=== PATIENT | female | born 1995 | race Asian ===

== ENCOUNTER 2024-02-07 11:08 | Inpatient (IN) | payer OTHER ==
[2024-02-07] VITALS (30 sets, daily range): BP systolic 101–176; BP diastolic 50–128; PULSE 91–156; RESP 13–34; TEMP 99.4–101.3
[~2024-02-07] VITALS: Ht 157.5 cm; Wt 59.0 kg
[2024-02-07] MEDS ORDERED: CEFEPIME 2GM IN DEXT 5% 100ML IV ONE (12:00)
[2024-02-07] MEDS: SODIUM CHLORIDE 0.9% 1,000 ML IV ONE ×2 (12:05→13:49)
[2024-02-07 12:06] LABS: HEMATOCRIT. 30.6 % (36.0-48.0); HEMOGLOBIN. 10.1 g/dL (12.0-16.0); MEAN CORPUSCULAR HEMOGLOBIN 28.3 pg (28.0-32.0); MEAN CORPUSCULAR VOLUME 85.7 fL (81.0-99.0); MEAN PLATELET VOLUME 7.5 fl (7.4-10.4); PLATELET 409 x1000/uL (130-400); RED BLOOD CELL COUNT 3.57 mill/uL (4.2-5.4); RED CELL DISTRIBUTION WIDTH 19.9 % (11.6-14.6); WHITE BLOOD COUNT 10.2 x1000/uL (4.5-11.0)
[2024-02-07 12:10] LABS: DIFFERENTIAL COMMENT 1
[2024-02-07 12:26] LABS: ALANINE AMINOTRANSFERASE 67 IU/L (10-49); ALBUMIN 3.8 g/dL (3.2-4.8); ASPARTATE AMINOTRANSFERASE 38 IU/L (<34); BILIRUBIN TOTAL 0.3 mg/dL (0.1-1.0); CHLORIDE 120 mEq/L (98-107); CREATINE KINASE 159 IU/L (34-145); CREATININE 1.9 mg/dL (0.6-1.0); GLUCOSE 99 mg/dL (70-105); PROTEIN TOTAL 7.7 g/dL (6.0-8.3); SODIUM 137 mEq/L (136-145); UREA NITROGEN BLOOD 44 mg/dL (9-23)
[2024-02-07] MEDS: CEFEPIME 2GM/100ML 100 ML IV NR (12:27)
[2024-02-07 12:33] LABS: POTASSIUM 7.2 mEq/L (3.5-5.1)
[2024-02-07 12:34] LABS: CARBON DIOXIDE < 10 mEq/L (21-32); TROPONIN I HIGH SENSITIVITY 119 ng/L (3.0-34)
[2024-02-07 12:42] LABS: D-DIMER 9.08 mg/L FEU (<0.50); INR 0.9; PARTIAL THROMBOPLASTIN TIME < 21.0 sec (23.4-31.0); PROTHROMBIN TIME 10.5 sec (9.6-11.0)
[2024-02-07] MEDS ORDERED: CALCIUM GLUCONATE 1,000 MG in DEXT 5% WATER 100 ML IV ONE (12:45)
[2024-02-07] MEDS ORDERED: FUROSEMIDE 100MG/10ML VIAL IV ONE (12:45)
[2024-02-07] MEDS ORDERED: ALBUTEROL (0.083%) 2.5MG/3ML NEB HHN SCH (13:00)
[2024-02-07] MEDS ORDERED: FUROSEMIDE 20MG/2ML VIAL IVP ONE (13:00)
[2024-02-07] MEDS: FUROSEMIDE 40MG/4ML VIAL IVP NR (13:15)
[2024-02-07] MEDS: CALCIUM GLUCONATE 1GM PREMIX 50 ML IV NR (13:37)
[2024-02-07] MEDS: INSULIN REGULAR (HUMULIN R) 300UNITS/3ML VIAL IV ONE (13:48)
[2024-02-07] MEDS: DEXTROSE 50% WATER 50ML SYRINGE IV ONE (13:48)
[2024-02-07] MEDS: SODIUM BICARBONATE 8.4% 1 MEQ/ML 50ML SYR IV ONE (13:49)
[2024-02-07 13:59] LABS: BG BASE EXCESS -14.2 mmol/L (-2.0-2.0); BG CARBOXYHEMOGLOBIN 0.2 % (0.5-1.5); BG DEOXYHEMOGLOBIN 3.7 % (0.0-5.0); BG HCO3 ACT 10.3 mmol/L (22.0-26.0); BG METHEMOGLOBIN 0.5 % (0.0-1.5); BG OXYGEN SATURATION 96.3 % (92.0-98.5); BG OXYHEMOGLOBIN 95.6 % (94.0-97.0); BG PCO2 20.5 mmHg (35.0-45.0); BG PH 7.317 (7.350-7.450); BG PO2 87.1 mmHg (75.0-100.0); BG SAMPLE SITE RIGHT BRACHIAL; BG TOTAL HEMOGLOBIN 8.9 g/dL (12.0-18.0); BG VENT MODE ROOM AIR
[2024-02-07 14:29] LABS: ANISOCYTOSIS 2+; PLATELET ESTIMATE SLIGHTLY INCREASED
[2024-02-07] MEDS: FUROSEMIDE 40MG/4ML VIAL IV NR (14:34)
[2024-02-07] MEDS: VANCOMYCIN 1G PREMIX 200 ML IV NR (14:34)
[2024-02-07 14:47] LABS: HCG SCREEN NEGATIVE
[2024-02-07 14:48] LABS: CALCIUM 8.4 mg/dL (8.7-10.4); CHLORIDE 118 mEq/L (98-107); CREATININE 1.8 mg/dL (0.6-1.0); GLUCOSE 141 mg/dL (70-105); SODIUM 135 mEq/L (136-145); UREA NITROGEN BLOOD 43 mg/dL (9-23)
[2024-02-07 14:58] LABS: CARBON DIOXIDE < 10 mEq/L (21-32)
[2024-02-07 14:59] LABS: POTASSIUM 6.6 mEq/L (3.5-5.1)
[2024-02-07 15:06] LABS: BETA HYDROXYBUTYRATE 0.1 mMol/L (0.0-0.3)
[2024-02-07 15:56] LABS: CLARITY URINE CLEAR (CLEAR); COLOR URINE YELLOW (YELLOW); GLUCOSE URINE NEGATIVE (NEGATIVE); KETONES URINE NEGATIVE (NEGATIVE); LEUKOCYTE ESTERASE URINE NEGATIVE (NEGATIVE); NITRITE URINE NEGATIVE (NEGATIVE); OCCULT BLOOD URINE 2+ (NEGATIVE); PH URINE 5.5 (4.5-8.0); PROTEIN URINE 2+ (NEGATIVE); SPECIFIC GRAVITY URINE 1.022 (1.005-1.030); UROBILINOGEN URINE 0.2 E.U./dL (0.2-1.0)
[2024-02-07 16:10] LABS: *AMPHETAMINES SCREEN URINE NEGATIVE (NEGATIVE); *BARBITURATES SCREEN URINE NEGATIVE (NEGATIVE); *BENZODIAZEPINES SCREEN URINE PRESUMPTIVE POSITIVE (NEGATIVE); *COCAINE SCREEN URINE NEGATIVE (NEGATIVE); CANNABINOID URINE SCREEN NEGATIVE (NEGATIVE); ECSTASY MDMA SCREEN URINE NEGATIVE (NEGATIVE); METHADONE URINE SCREEN Neg (NEGATIVE); OPIATES URINE SCREEN PRESUMPTIVE POSITIVE (NEGATIVE); PHENCYCLIDINE URINE SCREEN NEGATIVE (NEGATIVE)
[2024-02-07] MEDS: SODIUM CHLORIDE 0.9% 1,000 ML IV SCH (16:34)
[2024-02-07 16:38] LABS: BACTERIA URINE 1+; SQUAMOUS EPITHELIAL CELL URINE FEW /lpf (RARE/1+); WBC URINE 0-2 /hpf (0-2)
[2024-02-07] MEDS ORDERED: IPRATROPIUM/ALBUTEROL 0.5-3(2.5)MG/3ML NEB HHN PRN (17:30)
[2024-02-07] MEDS: METHYLPREDNISOLONE SOD SUCC 500 MG in DEXT 5% WATER 100 ML IV NR (17:34)
[2024-02-07] MEDS: ACETAMINOPHEN 325MG TABLET PO PRN (18:14)
[2024-02-07] MEDS ORDERED: DEXTROSE 50% WATER 50ML SYRINGE IV PRN (18:15)
[2024-02-07] MEDS: INSULIN LISPRO 100 UNITS/ML SUBCUT SCH (18:20)
[2024-02-07] MEDS: ENOXAPARIN 60MG/0.6ML SYR SUBCUT SCH (19:59)
[2024-02-07 20:06] LABS: PROTHROMBIN TIME 10.9 sec (9.6-11.0)
[2024-02-07 20:11] LABS: THYROID STIMULATING HORMONE 1.53 uIU/mL (0.55-4.78)
[2024-02-07] MEDS: DEXTROSE 50% WATER 50ML SYRINGE IV STA (20:30)
[2024-02-07] MEDS: SODIUM BICARBONATE 8.4% 1 MEQ/ML 50ML SYR IV NR (21:46)
[2024-02-07] MEDS ORDERED: HEPARIN 25,000 UNITS PREMIX 250 ML IV SCH (22:15)
[2024-02-07] MEDS: LORAZEPAM 2MG/ML INJ IV PRN (22:20)
[2024-02-07] MEDS: INSULIN REGULAR (HUMULIN R) 300UNITS/3ML VIAL IV STA (22:30)
[2024-02-07] MEDS: SODIUM POLYSTYRENE SULFONATE 15 G/60 ML BOT PO NR (22:32)
[2024-02-07] MEDS ORDERED: HEPARIN BOLUS PRN aPTT <36 IV (22:45)
[2024-02-07] MEDS ORDERED: HEPARIN BOLUS PRN aPTT 37-44 IV (22:45)
[2024-02-07] MEDS: BLOOD SUGAR DIAGNOSTIC STRIP TEST SCH (22:55)
[2024-02-07] MEDS: SODIUM BICARBONATE 150 MEQ in DEXTROSE 5% WATER 850 ML IV SCH (23:40)
[2024-02-08] VITALS (93 sets, daily range): BP systolic 117–163; BP diastolic 76–112; PULSE 70–123; RESP 11–33; TEMP 98.3–99.2
[2024-02-08] MEDS ORDERED: METHYLPREDNISOLONE SOD SUCC 125MG/2ML (ACT-O-VIAL) IV SCH
[2024-02-08] MEDS: HEPARIN 25,000 UNITS PREMIX 250 ML IV SCH (00:02)
[2024-02-08] MEDS: METHYLPREDNISOLONE SOD SUCC 125MG/2ML (ACT-O-VIAL) IV SCH (00:16)
[2024-02-08 00:42] LABS: PROTHROMBIN TIME 11.2 sec (9.6-11.0)
[2024-02-08 00:55] LABS: CALCIUM 8.6 mg/dL (8.7-10.4); POTASSIUM 5.6 mEq/L (3.5-5.1)
[2024-02-08] MEDS: LEVOFLOXACIN 500MG PREMIX 100 ML IV NR (03:11)
[2024-02-08] MEDS: ONDANSETRON HCL 4MG/2ML INJ IV PRN (05:34)
[2024-02-08 06:23] LABS: ALANINE AMINOTRANSFERASE 58 IU/L (10-49); ALBUMIN 3.2 g/dL (3.2-4.8); ASPARTATE AMINOTRANSFERASE 26 IU/L (<34); BILIRUBIN TOTAL 0.4 mg/dL (0.1-1.0); CALCIUM 8.5 mg/dL (8.7-10.4); CARBON DIOXIDE 18 mEq/L (21-32); CHLORIDE 115 mEq/L (98-107); CREATININE 1.9 mg/dL (0.6-1.0); GLUCOSE 171 mg/dL (70-105); POTASSIUM 4.8 mEq/L (3.5-5.1); PROTEIN TOTAL 6.7 g/dL (6.0-8.3); SODIUM 142 mEq/L (136-145); UREA NITROGEN BLOOD 42 mg/dL (9-23)
[2024-02-08 06:57] LABS: HEMATOCRIT. 24.9 % (36.0-48.0); HEMOGLOBIN. 8.8 g/dL (12.0-16.0); MEAN CORPUSCULAR HEMOGLOBIN 28.7 pg (28.0-32.0); MEAN CORPUSCULAR HGB CONC 35.4 g/dL (31.0-37.0); MEAN PLATELET VOLUME 8.9 fl (7.4-10.4); PLATELET 406 x1000/uL (130-400); RED BLOOD CELL COUNT 3.08 mill/uL (4.2-5.4); RED CELL DISTRIBUTION WIDTH 18.9 % (11.6-14.6); WHITE BLOOD COUNT 7.4 x1000/uL (4.5-11.0)
[2024-02-08 07:02] LABS: DIFFERENTIAL COMMENT 1
[2024-02-08] MEDS ORDERED: NALOXONE HCL 0.4MG/ML VIAL IV PRN (07:45)
[2024-02-08] MEDS: HYDROXYCHLOROQUINE SULFATE 200MG TABLET PO SCH (08:16)
[2024-02-08] MEDS: FOLIC ACID 1MG TABLET PO SCH (08:16)
[2024-02-08] MEDS: OXYCODONE HCL 5MG TABLET PO PRN (08:17)
[2024-02-08] MEDS: METHOTREXATE SODIUM 2 . 5MG TABLET PO SCH (08:18)
[2024-02-08] MEDS ORDERED: ALPR-340 PO (09:42)
[2024-02-08] MEDS ORDERED: PRED15SO74 PO (09:42)
[2024-02-08] MEDS ORDERED: SPIR1POW3 MC (09:42)
[2024-02-08] MEDS ORDERED: HYDR200T35 PO (09:42)
[2024-02-08] MEDS ORDERED: DIAZ2TAB3 MT (09:42)
[2024-02-08 09:59] LABS: ERYTHROCYTE SEDIMENTATION RATE 97 mm/hr (0-20)
[2024-02-08] MEDS: METOPROLOL TARTRATE 25MG TABLET PO NR (14:48)
[2024-02-08 15:17] LABS: GIANT PLATELETS 1+; HYPOCHROMASIA 1+; PLATELET ESTIMATE SLIGHTLY INCREASED
[2024-02-08 15:28] LABS: HEMATOCRIT 24.9 % (36.0-48.0); HEMOGLOBIN 8.7 g/dL (12.0-16.0); MEAN CORPUSCULAR HEMOGLOBIN 28.8 pg (28.0-32.0); MEAN CORPUSCULAR VOLUME 82.3 fL (81.0-99.0); PLATELET 413 x1000/uL (130-400); RED BLOOD CELL COUNT 3.02 mill/uL (4.2-5.4); RED CELL DISTRIBUTION WIDTH 18.8 % (11.6-14.6); WHITE BLOOD COUNT 11.4 x1000/uL (4.5-11.0)
[2024-02-08 15:42] LABS: IRON 162 ug/dL (50-170); TOTAL IRON BINDING CAPACITY 416 ug/dl (250-425)
[2024-02-08 15:46] LABS: FOLIC ACID (FOLATE) SERUM > 20.00 ng/mL (>5.38); VITAMIN B12 SERUM 1107 pg/mL (211-911)
[2024-02-08 16:06] LABS: TROPONIN I HIGH SENSITIVITY 71 ng/L (3.0-34)
[2024-02-08] MEDS: METOPROLOL TARTRATE 25MG TABLET PO SCH (21:19)
[2024-02-08] MEDS: LORAZEPAM 0.5MG TABLET PO NR (21:54)
[2024-02-08] MEDS: PANTOPRAZOLE SODIUM 40 MG/VIAL IV NR (21:54)
[2024-02-09] VITALS (54 sets, daily range): BP systolic 113–148; BP diastolic 64–114; PULSE 61–100; RESP 10–24; TEMP 98.2–98.5
[2024-02-09 01:00] LABS: TOTAL VOLUME 24 HR 400 mL
[2024-02-09 05:56] LABS: HEMATOCRIT. 23.8 % (36.0-48.0); HEMOGLOBIN. 8.1 g/dL (12.0-16.0); MEAN CORPUSCULAR HEMOGLOBIN 28.3 pg (28.0-32.0); MEAN CORPUSCULAR VOLUME 83.2 fL (81.0-99.0); MEAN PLATELET VOLUME 8.5 fl (7.4-10.4); PLATELET 383 x1000/uL (130-400); RED BLOOD CELL COUNT 2.86 mill/uL (4.2-5.4); RED CELL DISTRIBUTION WIDTH 18.4 % (11.6-14.6)
[2024-02-09 06:14] LABS: DIFFERENTIAL COMMENT 1
[2024-02-09] MEDS: LORAZEPAM 0.5MG TABLET PO SCH (06:22)
[2024-02-09] MEDS: LEVOFLOXACIN 250MG PREMIX 50 ML IV SCH (06:22)
[2024-02-09 06:42] LABS: ALANINE AMINOTRANSFERASE 43 IU/L (10-49); ALBUMIN 2.8 g/dL (3.2-4.8); ASPARTATE AMINOTRANSFERASE 20 IU/L (<34); BILIRUBIN DIRECT 0.1 mg/dL (<=3.0); BILIRUBIN TOTAL 0.3 mg/dL (0.1-1.0); CALCIUM 7.3 mg/dL (8.7-10.4); CARBON DIOXIDE 24 mEq/L (21-32); CHLORIDE 104 mEq/L (98-107); CREATININE 2.1 mg/dL (0.6-1.0); GLUCOSE 161 mg/dL (70-105); POTASSIUM 3.9 mEq/L (3.5-5.1); PROTEIN TOTAL 6.1 g/dL (6.0-8.3); SODIUM 138 mEq/L (136-145); UREA NITROGEN BLOOD 42 mg/dL (9-23)
[2024-02-09 07:35] LABS: TROPONIN I HIGH SENSITIVITY 57 ng/L (3.0-34)
[2024-02-09 09:10] LABS: G6PD RBC 3.05 x10E6/uL (3.77-5.28); RNP ANTIBODY 0.5 AI (0.0-0.9); SMITH ANTIBODY < 0.2 AI (0.0-0.9)
[2024-02-09] MEDS: PANTOPRAZOLE SODIUM 40 MG/VIAL IV SCH (09:22)
[2024-02-09 10:25] LABS: BG CARBOXYHEMOGLOBIN 0.3 % (0.5-1.5); BG DEOXYHEMOGLOBIN 6.8 % (0.0-5.0); BG FLOW(L/min) 0 L/min; BG FRACTION INSPIRED OXYGEN 21; BG HCO3 ACT 25.9 mmol/L (22.0-26.0); BG METHEMOGLOBIN 0.2 % (0.0-1.5); BG OXYGEN SATURATION 93.2 % (92.0-98.5); BG OXYHEMOGLOBIN 92.7 % (94.0-97.0); BG PH 7.513 (7.350-7.450); BG PO2 66.3 mmHg (75.0-100.0); BG SAMPLE SITE LEFT RADIAL; BG TOTAL HEMOGLOBIN 9.3 g/dL (12.0-18.0); BG VENT MODE ROOM AIR
[2024-02-09] MEDS: ENOXAPARIN 60MG/0.6ML SYR SUBCUT SCH (12:03)
[2024-02-09 13:07] LABS: ANTI-DNA DOUBLE STRANDED QUANT 211 IU/mL (0-9); ANTI-STREPTOLYSIN O 64.2 IU/mL (0.0-200.0); COMPLEMENT C3 42 mg/dL (82-167); COMPLEMENT C4 8 mg/dL (12-38)
[2024-02-09 16:05] LABS: ANISOCYTOSIS 1+; PLATELET ESTIMATE NORMAL
[2024-02-09] MEDS ORDERED: CEFEPIME 2GM IN DEXT 5% 100ML IV SCH (18:30)
[2024-02-09] MEDS: METHYLPREDNISOLONE SOD SUCC 125MG/2ML (ACT-O-VIAL) IV SCH (18:45)
[2024-02-09] MEDS: CEFEPIME 2GM/100ML 100 ML IV SCH (20:17)
[2024-02-09] MEDS: ENOXAPARIN 40MG/0.4ML SYR SUBCUT SCH (23:20)
[2024-02-10] VITALS (15 sets, daily range): BP systolic 123–155; BP diastolic 72–102; PULSE 58–82; RESP 11–19; TEMP 98–98.7
[2024-02-10 05:49] LABS: HEMATOCRIT. 25.3 % (36.0-48.0); HEMOGLOBIN. 8.8 g/dL (12.0-16.0); MEAN CORPUSCULAR HEMOGLOBIN 28.3 pg (28.0-32.0); MEAN CORPUSCULAR HGB CONC 34.8 g/dL (31.0-37.0); MEAN CORPUSCULAR VOLUME 81.4 fL (81.0-99.0); MEAN PLATELET VOLUME 8.3 fl (7.4-10.4); PLATELET 322 x1000/uL (130-400); RED BLOOD CELL COUNT 3.11 mill/uL (4.2-5.4); RED CELL DISTRIBUTION WIDTH 17.5 % (11.6-14.6); WHITE BLOOD COUNT 7.6 x1000/uL (4.5-11.0)
[2024-02-10 06:10] LABS: CALCIUM 7.5 mg/dL (8.7-10.4); CARBON DIOXIDE 26 mEq/L (21-32); CHLORIDE 103 mEq/L (98-107); CREATININE 1.9 mg/dL (0.6-1.0); GLUCOSE 124 mg/dL (70-105); PHOSPHORUS 5.2 mg/dL (2.5-4.9); POTASSIUM 3.9 mEq/L (3.5-5.1); SODIUM 138 mEq/L (136-145); UREA NITROGEN BLOOD 49 mg/dL (9-23)
[2024-02-10 06:11] LABS: DIFFERENTIAL COMMENT 1
[2024-02-10] MEDS: CALCIUM ACETATE 667MG CAPSULE PO SCH (08:33)
[2024-02-10] MEDS: AZITHROMYCIN 250 MG TABLET PO SCH (08:33)
[2024-02-10] MEDS: MAGNESIUM 2 G PREMIX 50 ML IV NR (08:34)
[2024-02-10] MEDS: CEFEPIME 2GM/100ML 100 ML IV SCH (13:36)
[2024-02-10 16:29] LABS: ANISOCYTOSIS 1+; PLATELET ESTIMATE NORMAL
[2024-02-10] MEDS: MEGESTROL ACETATE 400 MG/10 ML UDC PO SCH (17:47)
[2024-02-10] MEDS ORDERED: MEGESTROL ACETATE 20MG TABLET PO SCH (18:00)
[2024-02-11] VITALS (12 sets, daily range): BP systolic 127–148; BP diastolic 85–102; PULSE 55–83; RESP 0–25; TEMP 97.5–98.6
[2024-02-11 06:10] LABS: HEMOGLOBIN. 8.2 g/dL (12.0-16.0); MEAN CORPUSCULAR HEMOGLOBIN 28.3 pg (28.0-32.0); MEAN CORPUSCULAR HGB CONC 34.2 g/dL (31.0-37.0); MEAN CORPUSCULAR VOLUME 82.8 fL (81.0-99.0); MEAN PLATELET VOLUME 7.8 fl (7.4-10.4); PLATELET 289 x1000/uL (130-400); RED BLOOD CELL COUNT 2.89 mill/uL (4.2-5.4); WHITE BLOOD COUNT 5.3 x1000/uL (4.5-11.0)
[2024-02-11 06:28] LABS: DIFFERENTIAL COMMENT 1
[2024-02-11 08:21] LABS: CALCIUM 7.8 mg/dL (8.7-10.4); CARBON DIOXIDE 26 mEq/L (21-32); CHLORIDE 101 mEq/L (98-107); CREATININE 1.8 mg/dL (0.6-1.0); GLUCOSE 187 mg/dL (70-105); PHOSPHORUS 4.4 mg/dL (2.5-4.9); POTASSIUM 3.3 mEq/L (3.5-5.1); SODIUM 136 mEq/L (136-145); UREA NITROGEN BLOOD 51 mg/dL (9-23)
[2024-02-11 09:06] LABS: ANTI-MYELOPEROXIDASE AB < 0.2 units (0.0-0.9); ANTI-PROTEINASE 3 ABS < 0.2 units (0.0-0.9); G6PD QUANTITATIVE 368 (155-399)
[2024-02-11] MEDS: POTASSIUM CHLORIDE 20MEQ TABLET SR PO NR (11:48)
[2024-02-11] MEDS: SERTRALINE HCL 25MG TABLET PO SCH (16:00)
[2024-02-11 16:12] LABS: ANISOCYTOSIS 1+; PLATELET ESTIMATE NORMAL
[2024-02-11 17:11] LABS: ANGIOTENSION CONVERTING ENZYME 26 U/L (14-82)
[2024-02-11 19:06] LABS: ACTIN (SMOOTH MUSCLE) ANTIBODY 13 Units (0-19)
[2024-02-11] MEDS: LOSARTAN 50 MG TABLET PO SCH (21:15)
[2024-02-12] VITALS (12 sets, daily range): BP systolic 129–161; BP diastolic 86–116; PULSE 64–74; RESP 10–22; TEMP 97.3–98.4
[2024-02-12 07:11] LABS: HEMATOCRIT. 26.2 % (36.0-48.0); MEAN CORPUSCULAR HGB CONC 34.4 g/dL (31.0-37.0); MEAN CORPUSCULAR VOLUME 81.4 fL (81.0-99.0); MEAN PLATELET VOLUME 7.9 fl (7.4-10.4); PLATELET 227 x1000/uL (130-400); RED BLOOD CELL COUNT 3.22 mill/uL (4.2-5.4); RED CELL DISTRIBUTION WIDTH 17.6 % (11.6-14.6); WHITE BLOOD COUNT 6.4 x1000/uL (4.5-11.0)
[2024-02-12 07:16] LABS: DIFFERENTIAL COMMENT 1
[2024-02-12 07:17] LABS: CALCIUM 8.4 mg/dL (8.7-10.4); CREATININE 1.7 mg/dL (0.6-1.0); POTASSIUM 3.3 mEq/L (3.5-5.1)
[2024-02-12] MEDS: POTASSIUM CHLORIDE 20MEQ TABLET SR PO NR (08:38)
[2024-02-12] MEDS: METOPROLOL TARTRATE 50MG TABLET PO SCH (08:40)
[2024-02-12 13:07] LABS: ALDOLASE 5.8 U/L (3.3-10.3)
[2024-02-12 14:29] LABS: PLATELET ESTIMATE NORMAL
[2024-02-12 14:30] LABS: ANISOCYTOSIS 3+
[2024-02-12 17:11] LABS: ANTI-CARDIOLIPIN AB IGA < 9 APL U/mL (0-11); ANTI-CARDIOLIPIN AB IGG 11 GPL U/mL (0-14); ANTI-CARDIOLIPIN AB IGM < 9 MPL U/mL (0-12)
[2024-02-12] MEDS: METHYLPREDNISOLONE SOD SUCC 125MG/2ML (ACT-O-VIAL) IV SCH ×2 (19:00→22:32)
[2024-02-12] MEDS: LACTOBACILLUS GG CAPSULE PO SCH (20:49)
[2024-02-12] MEDS: LOSARTAN 50 MG TABLET PO SCH (20:58)
[2024-02-12] MEDS: ENOXAPARIN 60MG/0.6ML SYR SUBCUT SCH (22:35)
[2024-02-13] VITALS (12 sets, daily range): BP systolic 119–171; BP diastolic 79–109; PULSE 63–85; RESP 10–30; TEMP 97.4–98.5
[2024-02-13] MEDS: HYDRALAZINE 20MG/ML VIAL IV PRN (06:20)
[2024-02-13 06:37] LABS: HEMATOCRIT. 26.5 % (36.0-48.0); HEMOGLOBIN. 9.1 g/dL (12.0-16.0); MEAN CORPUSCULAR HEMOGLOBIN 27.9 pg (28.0-32.0); MEAN CORPUSCULAR HGB CONC 34.2 g/dL (31.0-37.0); MEAN CORPUSCULAR VOLUME 81.6 fL (81.0-99.0); PLATELET 185 x1000/uL (130-400); RED BLOOD CELL COUNT 3.26 mill/uL (4.2-5.4); RED CELL DISTRIBUTION WIDTH 17.2 % (11.6-14.6); WHITE BLOOD COUNT 7.7 x1000/uL (4.5-11.0)
[2024-02-13 06:44] LABS: DIFFERENTIAL COMMENT 1
[2024-02-13 07:00] LABS: CALCIUM 8.6 mg/dL (8.7-10.4); CARBON DIOXIDE 22 mEq/L (21-32); CHLORIDE 107 mEq/L (98-107); CREATININE 1.6 mg/dL (0.6-1.0); GLUCOSE 131 mg/dL (70-105); PHOSPHORUS 3.2 mg/dL (2.5-4.9); POTASSIUM 3.7 mEq/L (3.5-5.1); SODIUM 138 mEq/L (136-145); UREA NITROGEN BLOOD 50 mg/dL (9-23)
[2024-02-13] MEDS ORDERED: METHYLPREDNISOLONE ACETATE 40MG/ML VIAL INJ NR ×2 (08:00)
[2024-02-13 10:10] LABS: ANTI-DNA DOUBLE STRANDED QUANT 71 IU/mL (0-9)
[2024-02-13 12:45] LABS: ANISOCYTOSIS 1+; PLATELET ESTIMATE NORMAL
[2024-02-13] MEDS: APIXABAN 5 MG TABLET PO SCH (17:43)
[2024-02-13] MEDS ORDERED: METHYLPREDNISOLONE ACETATE 40MG/ML VIAL IM ONE ×4 (20:30)
[2024-02-13] MEDS: METHYLPREDNISOLONE SOD SUCC 125MG/2ML (ACT-O-VIAL) IV NR (21:59)
[2024-02-13] MEDS ORDERED: METHYLPREDNISOLONE SOD SUCC 125MG/2ML (ACT-O-VIAL) IV SCH (22:00)
[2024-02-14] VITALS (12 sets, daily range): BP systolic 125–168; BP diastolic 84–100; PULSE 64–86; RESP 10–26; TEMP 97.2–99.8
[2024-02-14] MEDS: CLONIDINE 0.1MG TABLET PO PRN (02:15)
[2024-02-14] MEDS: METHYLPREDNISOLONE SOD SUCC 40MG/ML (ACT-O-VIAL) IV SCH (05:11)
[2024-02-14 06:35] LABS: COMPLEMENT C3 40 mg/dL (82-167); COMPLEMENT C4 5 mg/dL (12-38)
[2024-02-14 07:06] LABS: CALCIUM 8.1 mg/dL (8.7-10.4); CREATININE 1.5 mg/dL (0.6-1.0); POTASSIUM 3.5 mEq/L (3.5-5.1)
[2024-02-14 09:31] LABS: MEAN CORPUSCULAR HEMOGLOBIN 28.2 pg (28.0-32.0); MEAN CORPUSCULAR HGB CONC 34.5 g/dL (31.0-37.0); MEAN CORPUSCULAR VOLUME 81.7 fL (81.0-99.0); MEAN PLATELET VOLUME 8.1 fl (7.4-10.4); PLATELET 122 x1000/uL (130-400); RED BLOOD CELL COUNT 2.55 mill/uL (4.2-5.4); RED CELL DISTRIBUTION WIDTH 17.1 % (11.6-14.6); WHITE BLOOD COUNT 7.7 x1000/uL (4.5-11.0)
[2024-02-14 09:52] LABS: DIFFERENTIAL COMMENT 1
[2024-02-14 09:56] LABS: HEMOGLOBIN. 7.2 g/dL (12.0-16.0)
[2024-02-14 09:57] LABS: HEMATOCRIT. 20.9 % (36.0-48.0)
[2024-02-14 11:12] LABS: ATYPICAL P-ANCA <1:20 titer (Neg:<1:20); CYTOPLASMIC C-ANCA <1:20 titer (Neg:<1:20); PERINUCLEAR P-ANCA <1:20 titer (Neg:<1:20)
[2024-02-14] MEDS: LIDOCAINE 5% PATCH TOP SCH (11:47)
[2024-02-14 13:07] LABS: HEMATOCRIT 22.1 % (36.0-48.0); HEMOGLOBIN 7.4 g/dL (12.0-16.0)
[2024-02-14 13:07] LABS: ANA IFA Negative (.)
[2024-02-14 15:07] LABS: NUCLEATED RED BLOOD CELLS 1 /100 WBC; PLATELET ESTIMATE SLIGHTLY DECREASED
[2024-02-14 15:08] LABS: ANISOCYTOSIS 3+
[2024-02-14 15:09] LABS: MICROCYTOSIS 1+
[2024-02-14] MEDS: ONDANSETRON HCL 4MG/2ML INJ IV PRN (18:08)
[2024-02-14] MEDS: LOSARTAN 100 MG TABLET PO SCH (20:58)
[2024-02-15] VITALS (15 sets, daily range): BP systolic 122–165; BP diastolic 89–103; PULSE 64–79; RESP 14–22; TEMP 98–100.1
[2024-02-15 05:37] LABS: CARBON DIOXIDE 20 mEq/L (21-32); CHLORIDE 110 mEq/L (98-107); CREATININE 1.5 mg/dL (0.6-1.0); GLUCOSE 118 mg/dL (70-105); IRON 245 ug/dL (50-170); POTASSIUM 4.3 mEq/L (3.5-5.1); SODIUM 138 mEq/L (136-145); TOTAL IRON BINDING CAPACITY 289 ug/dl (250-425); UREA NITROGEN BLOOD 50 mg/dL (9-23)
[2024-02-15 05:42] LABS: HEMATOCRIT. 21.6 % (36.0-48.0); HEMOGLOBIN. 7.3 g/dL (12.0-16.0); MEAN CORPUSCULAR HEMOGLOBIN 28.7 pg (28.0-32.0); MEAN CORPUSCULAR HGB CONC 33.9 g/dL (31.0-37.0); MEAN CORPUSCULAR VOLUME 84.9 fL (81.0-99.0); PLATELET 106 x1000/uL (130-400); RED BLOOD CELL COUNT 2.54 mill/uL (4.2-5.4); RED CELL DISTRIBUTION WIDTH 17.5 % (11.6-14.6)
[2024-02-15] MEDS: PREDNISONE 20MG TABLET PO SCH (06:28)
[2024-02-15 06:43] LABS: DIFFERENTIAL COMMENT 1
[2024-02-15] MEDS ORDERED: SERT25TA74 PO (12:04)
[2024-02-15] MEDS ORDERED: METO-539 PO (12:04)
[2024-02-15] MEDS ORDERED: PANT40TA51 MT (12:04)
[2024-02-15] MEDS ORDERED: HYDR200T35 PO (12:04)
[2024-02-15] MEDS ORDERED: FOLI-43 PO (12:04)
[2024-02-15] MEDS ORDERED: LOSA100T33 PO (12:04)
[2024-02-15 13:10] LABS: NUCLEATED RED BLOOD CELLS 1 /100 WBC
[2024-02-15 13:11] LABS: ANISOCYTOSIS 3+
[2024-02-15 13:12] LABS: MICROCYTOSIS 1+
[2024-02-15 13:13] LABS: PLATELET ESTIMATE DECREASED
[2024-02-15] MEDS: ACETAMINOPHEN 325MG TABLET PO PRN (20:34)
[2024-02-15 22:28] LABS: LACTATE DEHYDROGENASE 523 IU/L (120-246)
[2024-02-15 22:29] LABS: HAPTOGLOBIN < 10 mg/dL (40-280)
[2024-02-16] VITALS (14 sets, daily range): BP systolic 113–170; BP diastolic 75–103; PULSE 60–86; RESP 13–27; TEMP 98.4–98.9
[2024-02-16 09:05] LABS: LACTATE DEHYDROGENASE 611 IU/L (120-246)
[2024-02-16 09:42] LABS: HEMATOCRIT. 28.6 % (36.0-48.0); HEMOGLOBIN. 9.7 g/dL (12.0-16.0); MEAN CORPUSCULAR HEMOGLOBIN 28.4 pg (28.0-32.0); MEAN CORPUSCULAR HGB CONC 34.1 g/dL (31.0-37.0); MEAN CORPUSCULAR VOLUME 83.2 fL (81.0-99.0); MEAN PLATELET VOLUME 9.8 fl (7.4-10.4); PLATELET 98 x1000/uL (130-400); RED BLOOD CELL COUNT 3.43 mill/uL (4.2-5.4); RED CELL DISTRIBUTION WIDTH 16.5 % (11.6-14.6); WHITE BLOOD COUNT 16.1 x1000/uL (4.5-11.0)
[2024-02-16 10:36] LABS: DIFFERENTIAL COMMENT 1
[2024-02-16 12:50] LABS: ANISOCYTOSIS 3+; PLATELET ESTIMATE DECREASED
[2024-02-16 12:51] LABS: MICROCYTOSIS 1+
[2024-02-16] MEDS: HYDRALAZINE HCL 25MG TABLET PO NR (13:03)
[2024-02-16 16:01] LABS: CLARITY URINE CLEAR (CLEAR); COLOR URINE YELLOW (YELLOW); GLUCOSE URINE 1+ (NEGATIVE); KETONES URINE NEGATIVE (NEGATIVE); LEUKOCYTE ESTERASE URINE TRACE (NEGATIVE); NITRITE URINE NEGATIVE (NEGATIVE); OCCULT BLOOD URINE 3+ (NEGATIVE); PROTEIN URINE 3+ (NEGATIVE); SPECIFIC GRAVITY URINE 1.022 (1.005-1.030)
[2024-02-16] MEDS: HYDRALAZINE HCL 50MG TABLET PO SCH (16:14)
[2024-02-16 16:33] LABS: RBC URINE 50-100 /hpf (0-2); SQUAMOUS EPITHELIAL CELL URINE FEW /lpf (RARE/1+)
[2024-02-16 16:34] LABS: BACTERIA URINE FEW; YEAST URINE FEW
[2024-02-17] VITALS (10 sets, daily range): BP systolic 121–161; BP diastolic 87–102; PULSE 65–92; RESP 11–24; TEMP 96.8–98.6
[2024-02-17 13:50] LABS: HEMATOCRIT. 31.3 % (36.0-48.0); HEMOGLOBIN. 10.6 g/dL (12.0-16.0); MEAN CORPUSCULAR HGB CONC 33.7 g/dL (31.0-37.0); MEAN CORPUSCULAR VOLUME 85.9 fL (81.0-99.0); MEAN PLATELET VOLUME 9.8 fl (7.4-10.4); PLATELET 93 x1000/uL (130-400); RED BLOOD CELL COUNT 3.65 mill/uL (4.2-5.4); RED CELL DISTRIBUTION WIDTH 16.9 % (11.6-14.6); WHITE BLOOD COUNT 16.1 x1000/uL (4.5-11.0)
[2024-02-17 14:13] LABS: CALCIUM 7.6 mg/dL (8.7-10.4); CREATININE 1.2 mg/dL (0.6-1.0); POTASSIUM 5.1 mEq/L (3.5-5.1)
[2024-02-17 14:38] LABS: DIFFERENTIAL COMMENT 1
[2024-02-17] MEDS ORDERED: CEFEPIME 2GM IN DEXT 5% 100ML IV SCH (19:30)
[2024-02-17] MEDS: CEFEPIME 1GM/50ML 50 ML IV SCH (21:47)
[2024-02-17 23:39] LABS: ANISOCYTOSIS 1+; PLATELET ESTIMATE DECREASED
[2024-02-18] VITALS: BP 126/95; PULSE 70; RESP 23; TEMP 97.2
[2024-02-18 04:00] VITALS: BP 162/101; PULSE 120; RESP 20; TEMP 98.1
[2024-02-18 08:00] VITALS: BP 172/99; PULSE 64; RESP 21; TEMP 97.4
[2024-02-18] MEDS: SODIUM BICARBONATE 650 MG TABLET PO SCH (09:55)
[2024-02-18] MEDS ORDERED: HYDR100T26 PO ×2 (11:38→16:32)
[2024-02-18] MEDS ORDERED: APIX2.5T MT ×2 (11:38→16:32)
[2024-02-18] MEDS ORDERED: P20 PO ×2 (11:38→16:32)
[2024-02-18 12:00] VITALS: BP 148/81; PULSE 62; RESP 20; TEMP 97.2
[2024-02-18] MEDS: HYDRALAZINE HCL 100MG TABLET PO SCH (14:58)
[2024-02-18 15:58] LABS: HEMATOCRIT. 33.5 % (36.0-48.0); MEAN CORPUSCULAR HEMOGLOBIN 28.9 pg (28.0-32.0); MEAN CORPUSCULAR HGB CONC 32.7 g/dL (31.0-37.0); MEAN CORPUSCULAR VOLUME 88.1 fL (81.0-99.0); PLATELET 115 x1000/uL (130-400); RED CELL DISTRIBUTION WIDTH 17.7 % (11.6-14.6); WHITE BLOOD COUNT 17.5 x1000/uL (4.5-11.0)
[2024-02-18 16:02] LABS: DIFFERENTIAL COMMENT 1
[2024-02-18 16:04] VITALS: BP 140/81; PULSE 62; TEMP 97.2; O2SAT 99
[2024-02-18] MEDS ORDERED: METO-539 PO (16:32)
[2024-02-18] MEDS ORDERED: FOLI-43 PO (16:32)
[2024-02-18] MEDS ORDERED: SERT25TA74 PO (16:32)
[2024-02-18] MEDS ORDERED: HYDR200T35 PO (16:32)
[2024-02-18 18:08] LABS: ANISOCYTOSIS 1+; PLATELET ESTIMATE DECREASED
[2024-02-18 20:00] VITALS: BP 148/89; PULSE 72; RESP 18; TEMP 99
[2024-02-18] MEDS: GUAIFENESIN 600MG ER TABLET PO SCH (20:55)
[2024-02-18] MEDS: MEROPENEM 1G/100ML 100 ML IV SCH (22:06)
[2024-02-19] VITALS: BP 136/80; PULSE 84; RESP 18; TEMP 98.8
[2024-02-19 04:00] VITALS: BP 134/89; PULSE 89; RESP 18; TEMP 97.7
[2024-02-19 07:56] LABS: HEMATOCRIT. 32.6 % (36.0-48.0); HEMOGLOBIN. 10.9 g/dL (12.0-16.0); MEAN CORPUSCULAR HEMOGLOBIN 29.3 pg (28.0-32.0); MEAN CORPUSCULAR HGB CONC 33.5 g/dL (31.0-37.0); MEAN CORPUSCULAR VOLUME 87.5 fL (81.0-99.0); MEAN PLATELET VOLUME 10.3 fl (7.4-10.4); PLATELET 118 x1000/uL (130-400); RED BLOOD CELL COUNT 3.73 mill/uL (4.2-5.4); WHITE BLOOD COUNT 14.4 x1000/uL (4.5-11.0)
[2024-02-19 07:59] LABS: DIFFERENTIAL COMMENT 1
[2024-02-19 08:00] VITALS: BP 121/82; PULSE 73; RESP 20; TEMP 98.4
[2024-02-19 08:23] LABS: CALCIUM 7.9 mg/dL (8.7-10.4); CARBON DIOXIDE 16 mEq/L (21-32); CHLORIDE 110 mEq/L (98-107); CREATININE 1.1 mg/dL (0.6-1.0); GLUCOSE 95 mg/dL (70-105); POTASSIUM 5.3 mEq/L (3.5-5.1); SODIUM 133 mEq/L (136-145); UREA NITROGEN BLOOD 33 mg/dL (9-23)
[2024-02-19] MEDS ORDERED: ALBUTEROL (0.5%) 2.5MG/0.5ML NEB HHN NR (08:45)
[2024-02-19 12:00] VITALS: BP 127/69; PULSE 71; RESP 20; TEMP 98.2
[2024-02-19] MEDS: SODIUM POLYSTYRENE SULFONATE 15 G/60 ML BOT PO NR (12:33)
[2024-02-19 16:00] VITALS: BP 125/67; PULSE 74; RESP 20; TEMP 98.2
[2024-02-19 16:06] LABS: ANISOCYTOSIS 1+; PLATELET ESTIMATE DECREASED
[2024-02-19] MEDS: NYSTATIN 100,000 UNITS/ML 5ML UDC SSW SCH (17:38)
[2024-02-19] MEDS: APIXABAN 2.5 MG TABLET PO SCH (17:39)
[2024-02-19 20:00] VITALS: BP 117/75; PULSE 81; RESP 17; TEMP 96.1
[2024-02-20] VITALS: BP 124/73; PULSE 77; RESP 18; TEMP 97.6
[2024-02-20 06:12] LABS: CALCIUM 7.7 mg/dL (8.7-10.4); CREATININE 1.1 mg/dL (0.6-1.0); POTASSIUM 5.1 mEq/L (3.5-5.1)
[2024-02-20 06:16] LABS: HEMATOCRIT. 30.6 % (36.0-48.0); HEMOGLOBIN. 10.3 g/dL (12.0-16.0); MEAN CORPUSCULAR HEMOGLOBIN 29.7 pg (28.0-32.0); MEAN CORPUSCULAR HGB CONC 33.7 g/dL (31.0-37.0); MEAN CORPUSCULAR VOLUME 88.1 fL (81.0-99.0); MEAN PLATELET VOLUME 9.3 fl (7.4-10.4); PLATELET 118 x1000/uL (130-400); RED BLOOD CELL COUNT 3.47 mill/uL (4.2-5.4); RED CELL DISTRIBUTION WIDTH 18.2 % (11.6-14.6); WHITE BLOOD COUNT 11.4 x1000/uL (4.5-11.0)
[2024-02-20 06:46] LABS: DIFFERENTIAL COMMENT 1
[2024-02-20 08:00] VITALS: BP 138/97; PULSE 87; RESP 18; TEMP 98.1
[2024-02-20] MEDS: SERTRALINE HCL 50MG TABLET PO SCH (08:47)
[2024-02-20 12:00] VITALS: BP 166/99; PULSE 76; RESP 19; TEMP 98.2
[2024-02-20 14:19] LABS: ANISOCYTOSIS 2+; PLATELET ESTIMATE SLIGHTLY DECREASED
[2024-02-20 16:00] VITALS: BP 131/77; PULSE 81; RESP 18; TEMP 97.7
[2024-02-21 06:13] LABS: HGB A 97.5 % (96.4-98.8); HGB A2 2.5 % (1.8-3.2)
[2024-02-21 07:25] LABS: CALCIUM 8.3 mg/dL (8.7-10.4); CARBON DIOXIDE 18 mEq/L (21-32); CHLORIDE 109 mEq/L (98-107); GLUCOSE 111 mg/dL (70-105); POTASSIUM 4.8 mEq/L (3.5-5.1); SODIUM 134 mEq/L (136-145); UREA NITROGEN BLOOD 33 mg/dL (9-23)
[2024-02-21 08:00] VITALS: BP 133/77; PULSE 71; RESP 18; TEMP 99.1
[2024-02-21 09:10] LABS: HEMATOCRIT. 30.4 % (36.0-48.0); HEMOGLOBIN. 10.4 g/dL (12.0-16.0); MEAN CORPUSCULAR HEMOGLOBIN 30.6 pg (28.0-32.0); MEAN CORPUSCULAR HGB CONC 34.1 g/dL (31.0-37.0); MEAN CORPUSCULAR VOLUME 89.6 fL (81.0-99.0); PLATELET 134 x1000/uL (130-400); RED BLOOD CELL COUNT 3.39 mill/uL (4.2-5.4); RED CELL DISTRIBUTION WIDTH 23.3 % (11.6-14.6); WHITE BLOOD COUNT 9.3 x1000/uL (4.5-11.0)
[2024-02-21 09:23] LABS: DIFFERENTIAL COMMENT 1
[2024-02-21] MEDS ORDERED: NON FORMULARY PATIENT HOME MED XX SCH (11:45)
[2024-02-21 12:00] VITALS: BP 130/78; PULSE 69; RESP 18; TEMP 99
[2024-02-21 15:06] LABS: ANA IFA Positive (.)
[2024-02-21 16:00] VITALS: BP 121/71; PULSE 77; RESP 18; TEMP 99.9
[2024-02-21] MEDS: PREDNISONE 20MG TABLET PO SCH (18:59)
[2024-02-21 19:10] LABS: ANISOCYTOSIS 2+; PLATELET ESTIMATE NORMAL
[2024-02-21 20:00] VITALS: BP 117/70; PULSE 87; RESP 20; TEMP 97
[2024-02-22] VITALS: BP 94/60; PULSE 87; RESP 17; TEMP 97.8
[2024-02-22 04:00] VITALS: BP 121/70; PULSE 75; RESP 20; TEMP 98.1
[2024-02-22 08:00] VITALS: BP 128/82; PULSE 75; RESP 17; TEMP 97.9
[2024-02-22 09:06] LABS: ANTI-DNA DOUBLE STRANDED QUANT 26 IU/mL (0-9); COMPLEMENT C3 44 mg/dL (82-167); COMPLEMENT C4 12 mg/dL (12-38)
[2024-02-22 13:34] VITALS: BP 134/79; PULSE 78; TEMP 97.2; O2SAT 99
[2024-02-23 13:07] LABS: GLYCOPROTEIN IV AB Negative (Negative); HLA CLASS 1 ANTIBODY Negative (Negative); IIb/IIIa ANTIBODY Negative (Negative); Ia/IIa ANTIBODY Negative (Negative); Ib/IX ANTIBODY Negative (Negative)
== END 2024-02-22 14:04 | disposition home or self-care (01) | DRG 871 ==
LOC: ER 11:08 → CVICU 13:39 → EDBEDREQSVC 13:41 → EDBEDREQ 13:41 → 5EST 02-10 09:24 → 6EST 02-18 03:45
PROVIDERS: ADMIT Family Medicine Adult Medicine; ATTEND Family Medicine Adult Medicine
PROC: 3E0333Z Introduction of Anti-inflammatory into Peripheral Vein, Percutaneous Approach (ICD-10-PCS; principal; 2024-02-13)
PROC: 30233N1 Transfusion of Nonautologous Red Blood Cells into Peripheral Vein, Percutaneous Approach (ICD-10-PCS; 2024-02-15)
DX: A41.9 Sepsis, unspecified organism (principal); G93.41 Metabolic encephalopathy; J18.9 Pneumonia, unspecified organism; I21.A1 Myocardial infarction type 2; I26.99 Other pulmonary embolism without acute cor pulmonale; J96.00 Acute respiratory failure, unspecified whether with hypoxia or hypercapnia; N17.9 Acute kidney failure, unspecified; I13.0 Hypertensive heart and chronic kidney disease with heart failure and stage 1 through stage 4 chronic kidney disease, or unspecified chronic kidney disease; B37.0 Candidal stomatitis; Z16.12 Extended spectrum beta lactamase (ESBL) resistance; M62.82 Rhabdomyolysis; N39.0 Urinary tract infection, site not specified; I50.9 Heart failure, unspecified; E87.5 Hyperkalemia; R73.9 Hyperglycemia, unspecified; T38.0X5A Adverse effect of glucocorticoids and synthetic analogues, initial encounter; E83.51 Hypocalcemia; E83.39 Other disorders of phosphorus metabolism; E83.42 Hypomagnesemia; N18.9 Chronic kidney disease, unspecified; B96.1 Klebsiella pneumoniae [K. pneumoniae] as the cause of diseases classified elsewhere; R53.81 Other malaise; R26.9 Unspecified abnormalities of gait and mobility; R74.01 Elevation of levels of liver transaminase levels; D63.8 Anemia in other chronic diseases classified elsewhere; B96.89 Other specified bacterial agents as the cause of diseases classified elsewhere; X58.XXXA Exposure to other specified factors, initial encounter; Z20.822 Contact with and (suspected) exposure to COVID-19; D69.6 Thrombocytopenia, unspecified; D75.839 Thrombocytosis, unspecified; G47.00 Insomnia, unspecified; M13.0 Polyarthritis, unspecified; M94.0 Chondrocostal junction syndrome [Tietze]; Z78.1 Physical restraint status; Z79.899 Other long term (current) drug therapy; Z86.711 Personal history of pulmonary embolism; Z88.0 Allergy status to penicillin
CPT/HCPCS: 36415; 36600; 71045; 71275; 76770; 80048; 80053; 80076; 80305; 81003; 82010; 82085; 82164; 82270; 82375; 82533; 82550; 82607; 82728; 82746; 82805; 82955; 82962; 83010; 83021; 83036; 83516; 83520; 83540; 83550; 83605; 83615; 83735; 83880; 84100; 84132; 84145; 84156; 84443; 84481; 84484; 84703; 85014; 85018; 85025; 85027; 85041; 85044; 85379; 85651; 85660; 86022; 86038; 86060; 86147; 86160; 86225; 86235; 86256; 86332; 86850; 86880; 86900; 86920; 87077; 87186; 87426; 87804; 93005; 93306; 93970; 97110; 97116; 97162; 97166; 97530; 97535; 99285; C9113; J0360; J0610; J0692; J1030; J1644; J1650; J1815; J1940; J1956; J2060; J2185; J2405; J2920; J2930; J3370; J3475; J3490; J7030; J7060; J7070; J7512; J8610; P9016